=== PATIENT | male | born 1990 | race Caucasian/White ===

== ENCOUNTER 2017-11-13 07:37 | Outpatient (CLI) | payer OTHER ==
--- NOTE | 2017-11-13 14:18 | MRI Report ---
Reason: FRACTURE OF UNSPECIFIED PHALANX OF UNSPECIFIED FIN Procedure Date: 11/13/2017 Accession Number: [id number] / [id number] Procedure: MRI - Finger(s) LT W/O CPT Code: 42127 FULL RESULT: EXAM: LEFT HAND FIFTH DIGIT MR WITHOUT CONTRAST EXAM DATE: 11/13/2017 09:42 AM. CLINICAL HISTORY: Previous left fifth digit injury 3 weeks ago. Left fifth digit swelling and decreased range of motion. COMPARISON: None. TECHNIQUE: Multiplanar, multisequence T1-weighted and fluid-sensitive sequences of the finger without contrast. Other: None. FINDINGS: Bones: No fractures or subluxations. No marrow edema. No bone lesions. Cartilage: The articular cartilage is unremarkable. Ligaments: The radial and ulnar collateral ligaments are intact. Tendons: The flexor and extensor tendons are unremarkable. The visualized pulleys are intact. Musculature: No edema or fatty atrophy. Other: No joint effusions or capsular rupture. The subcutaneous tissues are unremarkable. IMPRESSION: No MRI abnormalities in the finger. [facility] MUSCULOSKELETAL RADIOLOGY SECTION
== END 2017-11-13 07:38 | disposition home or self-care (01) ==
LOC: DI 07:37
DX: S69.92XA Unspecified injury of left wrist, hand and finger(s), initial encounter (principal); S62.609A Fracture of unspecified phalanx of unspecified finger, initial encounter for closed fracture